=== PATIENT | female | born 2000 | race Caucasian/White ===

== ENCOUNTER 2018-01-11 22:04 | Emergency (ER) | payer OTHER ==
[~2018-01-11] VITALS: Ht 154.9 cm; Wt 60.8 kg
--- NOTE | 2018-01-11 23:20 | NUR ---
DR MICHAEL LONG MD AT BEDSIDE FOR MSE.
--- NOTE | 2018-01-11 23:43 | NUR ---
RADIOLOGY AT BEDSIDE FOR XRAY
--- NOTE | 2018-01-12 00:45 | NUR ---
Patient discharged to home in stable conditon. Written and verbal after care instructions given. Patient verbalizes understanding of instructions. PT ambulated from ER w/ use of crutches. Pt took all personal belongings.
[2018-01-12 00:47] VITALS: BP 117/72
== END 2018-01-12 00:48 | disposition home or self-care (01) ==
LOC: ER 22:05
DX: S92.512A Displaced fracture of proximal phalanx of left lesser toe(s), initial encounter for closed fracture (principal); X58.XXXA Exposure to other specified factors, initial encounter; Y93.89 Activity, other specified; Y92.89 Other specified places as the place of occurrence of the external cause; Y99.8 Other external cause status
CPT/HCPCS: 73620; A4663